=== PATIENT | male | born 1960 | race African-American/Black ===

== ENCOUNTER 2022-03-09 11:40 | Emergency (ER) | payer OTHER ==
[~2022-03-09] VITALS: Ht 175.3 cm; Wt 90.7 kg
[2022-03-09] MEDS ORDERED: LIDOCAINE 1%HCL (LOCAL ANESTH) 10 ML MDV ONE (14:57)
[2022-03-09] MEDS ORDERED: SODIUM CHLORIDE 0.9% 1,000 ML IV ONE (15:15)
[2022-03-09] MEDS ORDERED: VANCOMYCIN 1GM/250ML 250 ML IV ONE (15:15)
[2022-03-09] MEDS ORDERED: MORPHINE SULFATE INJ 2 MG/ml SYRG IV ONE (15:15)
[2022-03-09] MEDS ORDERED: PIPERACILLIN-TAZOB 3.375GM 100 ML IV ONE (15:15)
[2022-03-09 16:09] LABS: Basophils # (auto) 0.1 10 ^3/uL (0-0.2); Monocytes # (auto) 0.6 10 ^3/uL (0-1.3)
[2022-03-09 16:16] LABS: Eosinophils # (auto) 0.2 10 ^3/uL (0-0.8); Eosinophils % (auto) 1.9 % (0.0-7.0); Hemoglobin 11.3 g/dL (13.5-17.5); Lymphocytes # (auto) 1.2 10 ^3/uL (0.4-5.4); Lymphocytes % (auto) 12.2 % (10.0-50.0); Monocytes % (auto) 6.9 % (0.0-12.0); Neutrophils # (auto) 7.4 10 ^3/uL (1.6-8.6); Nucleated Red Blood Cells % 0.1 %; Red Blood Cells 3.85 10^6/uL (4.5-5.90); White Blood Cell 9.5 10^3/uL (4.4-10.8)
[2022-03-09 16:17] LABS: Hematocrit 33.8 % (41.0-53.0); Mean Corpuscular Hemoglobin 29.4 pg (28.0-32.0); Mean Corpuscular Hgb Conc. 33.4 g/dL (32.0-36.0); Mean Corpuscular Volume 87.8 fL (80.0-100.0); Red Cell Distribution Width 14.3 % (11.8-14.3)
[2022-03-09 17:14] LABS: Albumin 3.7 g/dL (3.4-5.0); Potassium 3.6 mmol/L (3.5-5.1)
[2022-03-09 17:16] LABS: BUN/Creatinine Ratio 14.2
[2022-03-09 17:19] LABS: Bilirubin, Total 0.5 mg/dL (0.2-1.0); Total Protein 7.5 g/dL (6.4-8.2)
[2022-03-09 17:25] LABS: CRP High Sensitivity 2.54 mg/dL (< 0.3)
[2022-03-09] MEDS ORDERED: CLIN300C8 PO (20:36)
[2022-03-10 02:00] VITALS: BP 105/44
== END 2022-03-10 02:12 | disposition home or self-care (01) ==
LOC: ER 11:40 → EDBD 11:40 → ER 03-10 02:05
DX: S81.812A Laceration without foreign body, left lower leg, initial encounter (principal); L03.116 Cellulitis of left lower limb; X99.1XXA Assault by knife, initial encounter; Y93.89 Activity, other specified; Y92.89 Other specified places as the place of occurrence of the external cause; Y99.8 Other external cause status
CPT/HCPCS: 36415; 73590; 80053; 83605; 85025; 85652; 86141; 87040; 96365; 96366; 96367; 99285; J2001; J2270; J2543; J3370; J7030